=== PATIENT | male | born 1965 | race Two or more races ===

== ENCOUNTER 2022-04-19 19:15 | Emergency (ER) | payer OTHER ==
[~2022-04-19] VITALS: Ht 177.8 cm; Wt 99.8 kg
[2022-04-19] MEDS ORDERED: DICLOFENAC SODI75 MG PO (20:52)
== END 2022-04-19 20:57 | disposition home or self-care (01) ==
LOC: ER 19:15
DX: M25.569 Pain in unspecified knee (principal); M25.539 Pain in unspecified wrist

== ENCOUNTER 2023-11-18 06:57 | Emergency (ER) | payer OTHER ==
[~2023-11-18] VITALS: Ht 177.8 cm; Wt 99.8 kg
[~2023-11-18 06:57] MED LIST: DICLOFENAC SODI75 MG PO
== END 2023-11-18 10:59 | disposition home or self-care (01) ==
LOC: ER 06:57
DX: U07.1 COVID-19 (principal)